=== PATIENT | male | born 1995 | race Caucasian/White ===

== ENCOUNTER 2018-08-11 16:29 | Emergency (ER) | payer OTHER, SELFPAY ==
[2018-08-11 16:29] VITALS: BP 156/71; PULSE 86; RESP 17; TEMP 36.7; O2SAT 97; BMI 31.2
--- NOTE | 2018-08-11 16:46 | RAD_ITS ---
STUDY: X-RAY - RIGHT HAND REASON FOR EXAM: Male, 23 years old. Hand got stuck between trailer and lawnmower, index finger laceration TECHNIQUE: 3 view(s) of the hand. COMPARISON: None. FINDINGS: Normal radiocarpal articulation. Normal distal radioulnar joint. Normal visualized carpal bones. Normal carpal articulations Normal carpometacarpal articulation of the thumb. Normal second through fifth carpometacarpal joints. Normal metacarpi. Normal metacarpophalangeal joint of the thumb. Normal interphalangeal joint of the thumb. Normal proximal and distal phalanges of the thumb. Normal metacarpophalangeal joints of the second through fifth fingers. Normal proximal and distal interphalangeal joints of the second through fifth fingers. Normal phalanges of the second through fifth fingers. Punctate radiodensities along the palmar and ulnar side of the second digit (at PIP joint level). RAD/Hand Min 3 Views IMPRESSION: 1. No fracture. 2. Punctate retained foreign bodies in the soft tissues adjacent to the second PIP joint. Electronically Signed: Artie Wade MD at 17:26 EST , Service support ,
--- NOTE | 2018-08-11 16:49 | ED.DCSUM_ITS ---
- ER Visit Summary Date of Service: 08/11/18 Chief Complaint: Finger injury History of Present Illness: The patient is a 23 M presents to the emergency department with right second finger injury. Patient is right-hand dominant. He got his finger pinched between a lawnmower in a trailer. He had immediate pain and bleeding. His tetanus is up-to-date. He takes no daily medications. He denies other injury. He presented here immediately. Physical Examination: Patient does have a 2 cm laceration over the mid phalanges on the palmar aspect. Flexor profundus and flexor superficialis are intact. Two-point determination is preserved. Cap refill is less than 2 seconds. Test Results: [] Emergency Department Course and Treatment: X-rays were obtained of the hand. Patient underwent digital block. X-rays do not show any evidence of fracture. There was some gross contamination of the wound. At the digital block, the patient did have significant anesthesia. [place] was placed. Copious amounts of foreign debris was able to removed. I did irrigated with 500 cc of normal saline and scrubbed with a operative scrub brush. The tendon was intact. The laceration was closed loosely with 5 simple interrupted sutures given the amount of contamination. He will also be placed on Keflex. Patient was counseled on wound care. I did instruct him that this wound is going to need close reevaluation. I counseled that if he cannot get in to see anyone with the next 48 hours he should return to the emergency department. He was comfortable this plan of care. Treatment Plan: [] Disposition: Discharge Impression: Right second finger 2 cm laceration with repair This note was generated with [employer] dictation software. It may contain incorrect words, spelling, and punctuation that were not noted in review of the chart prior to signing ED Disposition - Plan for ED Patient: Disposition: Home or Assisted Living Chief Complaint: Laceration Instructions: ED Laceration Hand Prescriptions: Cephalexin [Keflex] 500 mg PO Q6 #40 cap Referrals: Care Physician,No Primary [Primary Care Provider] - 7 Days for suture removal
[2018-08-11] MEDS: Bupivacaine Mpf 0.5% 30 ML VIAL INFILT (17:00)
[2018-08-11] MEDS: Cephalexin 250 MG Capsule 500 MG PO (17:36)
[2018-08-11] MEDS: Diphth,Pertuss(Acell),Tet Vac 0.5 ML Vial IM (17:42)
== END 2018-08-11 17:59 | disposition home or self-care (01) ==
PROVIDERS: Emergency Provider Emergency Medicine
DX: S61.220A Laceration with foreign body of right index finger without damage to nail, initial encounter (principal); X58.XXXA Exposure to other specified factors, initial encounter; Y93.9 Activity, unspecified; Y92.9 Unspecified place or not applicable; Y99.9 Unspecified external cause status; Z23 Encounter for immunization
CPT/HCPCS: 12041; 73130; 90471; 90715; 99284